=== PATIENT | female | born 1955 | race Caucasian/White ===

== ENCOUNTER → 2019-06-01 | Day surgery (SDC) | payer OTHER ==
[~2019-06-01] MED LIST: ACYCLOVIR400 MG PO; CALCIUM PO; CALCIUM WITH V1 EAC1 PO; COLESTIPOL HCL1 GM PO; FENTANYL CITRATE/PF 100MCG/2 ML INJ ONE; GLUCAGON FOR INJ 1 MG VIAL ONE; HYOSCYAMINE 0.125 MG TAB ONE; LIALDA1.2 GM PO; MIDAZOLAM HCL 2 MG/2 ML VIAL ONE; MULTIVITAMIN PO; OMEPRAZOLE40 MG PO; PENTASA500 MG PO; PRED FORTE1 ML LEFT EAR; PROPOFOL IV EMULSION 10 MG/ML 50 ML VIAL ONE
--- OUTSIDE RECORDS SUMMARY | 2019-06-01 08:09 | XMS REPORT | Encounter Summary ---
Author Organization Unknown Address [address] [place] [address] Phone [phone] Reason for Visit Medical Complaint Instructions 1. Acute urinary tract infection Macrobid 100 mg capsule urinary tract infection in women: care instructions urinalysis, dipstick culture, urine - 11/23/2017@1205pm 2. Dysuria painful urination (dysuria): care instructions phenazopyridine 200 mg tablet Discussion Note: None recorded. Plan of Care Patient Instructions Take charge of your health handout given and discussed. SE of medictions discussed and pt verbalized understanding. Reminders Provider Appointments None recorded. Lab Urinalysis, Dipstick 11/23/2017 [facility] Culture, Urine 11/23/2017 [facility] Referral None recorded. Procedures None recorded. Surgeries None recorded. Imaging None recorded. Medications Name Start Date Colestid qd colestipol 1 gram tablet Fluarix Quad 5028-7082 (PF) 60 mcg (15 mcg x 4)/0.5 mL IM syringe TO BE ADMINISTERED BY PHARMACIST FOR IMMUNIZATION Macrobid 100 mg capsule Take 1 capsule every 12 hours by oral route as directed for 7 days. multivitamin [place] 3 omeprazole 40 mg capsule,delayed release Pentasa 500 mg capsule,controlled release phenazopyridine 200 mg tablet Take 1 tablet 3 times a day by oral route as needed for 2 days. Medications Administered None recorded. Vitals Height Weight BMI Blood Pressure 5 ft 1 in 116 lbs 21.9 kg/m2 110/74 mm[Hg] Lab Results Date Name Specimen Result Interpretation Description Value Range Status Address Urinalysis, Dipstick Color : Yellow [facility]: [address] [place] [address] Clarity : Cloudy [facility]: [address] [place] [address] Leukocytes : Large [facility]: [address] [place] [address] Nitrites : Negative [facility]: [address] [place] [address] Urobilinogen : Normal [facility]: [address] [place] [address] Protein : 100 [facility]: [address] [place] [address] Ph : 6.5 [facility]: [address] [facility] Blood : Large [facility]: [facility] Specific [place] : 1.020 [facility]: [facility] Ketones : Negative [facility]: [address] [facility] Bilirubin : Negative [facility]: 9 [facility] Glucose Negative [facility]: 9 [facility] Allergies Code Code System Name Reaction Severity Status Onset 2670 RxNorm Codeine Rash Moderate Active Problems Name Status Onset Date Source Urinary Tract Infectious Disease Active Encounter Wheezing Active Encounter Cough Active Encounter Dysuria Active Encounter Procedures Date Name Performed by Cholecystectomy Information not available Hysterectomy Information not available Vaccine List Vaccine Type influenza, injectable, quadrivalent 05/07/2017 influenza, seasonal, injectable 06/06/2015 Tdap 03/06/2017 Social History Smoking Status Former Smoker Past Encounters 11/23/2017 Acute Urinary Tract Infection; Dysuria 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 History of Present Illness [id number] Reported By: Patient HPI: Location: urethra. Quality: pressure, burning. Severity: worsening, severe. Duration: started 1 wek. Onset/Timing: gradual. Context: not sexually active, no known exposure to STD, no prior history of STDs. Modifying factors OTC medication. Associated Symptoms: no fever/chills, no flank pain, no jaundice, no blood in the urine, no vaginal discharge, no blisters on genitals, no rash on genitals, no muscle aches, no headache, pain during urination, burning sensation during urination, urgency, urinary frequency, feeling of incomplete emptying of bladder Review of Systems:ROS as noted in the HPI Review of Systems Basic Reported By: Patient Physical Exam Adult Basic, Adult Female Complete Reported By: Patient Constitutional: General Appearance: healthy-appearing, well-nourished, well-developed. Level of Distress: NAD. Ambulation: ambulating normally Psychiatric: Mental Status: active and alert. Orientation: to time, to place, to person Lungs: Respiratory effort: no dyspnea, no tachypnea, no use of accessory muscles, no intercostal retractions. Auscultation: breath sounds normal Cardiovascular: Heart Auscultation: RRR, no murmurs Neurologic: Gait and Station: normal gait, normal station Abdomen: Bowel Sounds: normal. Inspection and Palpation: soft, non-distended, no guarding, no masses, no CVA tenderness, suprapubic tenderness. Liver: non- tender, no hepatomegaly. Spleen: non-tender, no splenomegaly
--- OUTSIDE RECORDS SUMMARY | 2019-06-01 08:09 | XMS REPORT | Encounter Summary ---
Author Organization Unknown Address [address] [place] [address] Phone [phone] Reason for Visit Left Medical Complaint Instructions 1. Viral conjunctivitis pinkeye: care instructions Patanol 0.1 % eye drops adenovirus Ag, Immunoassay 2. Influenza-like symptoms rapid flu (A+B) 3. Pain in throat sore throat: care instructions rapid strep group A, throat Lidocaine Viscous 2 % mucosal solution Discussion Note Pt is in NAD; Verbalizes understanding of all instructions with no questions at this time. Plan of Care Patient Instructions Stop trobamycin-dexamethasone eye drops. Proper hand hygiene after contact with eyes, do not share pillows/clothing. Do not not wear any contacts for the next 7 days. Use a different tissue to clean each eye. You will become non-contagious after about 7-10 days. Start Patanol eye drops as directed for redness/itching. Take medications as prescribed. Follow up with your PCP or installation and repair technician within 2-3 days if symptoms worsen as discussed. Report to ER in case of emergency, sharp eye pain or vision loss. Gargle and spit viscous lidocaine as needed for sore throat as directed. Alternate with Ibuprofen and acetaminophen every 4-6hrs as needed for pain/fever/headache. Proper hydration and rest. Do not share any utensils/cups, no kissing. Frequent handwashing recommended. Take medications as prescribed. Follow up with your PCP within 2-3 days if symptoms worsen as discussed. Reminders Provider Appointments None recorded. Lab Rapid Flu (A+B) 09/07/2018 [facility] Rapid Strep Group a, Throat 09/07/2018 [facility] Adenovirus Ag, Immunoassay 09/07/2018 [facility] Referral None recorded. Procedures None recorded. Surgeries None recorded. Imaging None recorded. Medications Name Start Date Afluria Quad 2710-8647 (PF) 60 mcg (15 mcg x 4)/0.5 mL IM syringe ADM 0.5ML IM UTD colestipol 1 gram tablet Lidocaine Viscous 2 % mucosal solution Take 15 mL every 3 hours by oral route as needed. mesalamine 1.2 gram tablet,delayed release TK 2 TS PO QD omeprazole 40 mg capsule,delayed release Patanol 0.1 % eye drops INSTILL 1 DROP INTO AFFECTED EYE(S) BY OPHTHALMIC ROUTE 2 TIMES PER DAY AT AN INTERVAL OF 6 TO 8 HOURS APART PRN REDNESS/WATERY DRAINAGE/ITCHING Medications Administered None recorded. Vitals Height Weight BMI Blood Pressure 5 ft 1 in 130 lbs 24.6 kg/m2 110/70 mm[Hg] Lab Results Date Name Specimen Result Interpretation Description Value Range Status Address Adenovirus Ag, Immunoassay Result positive [facility]: [address] [place] [address] Swab Location Left Conjunctiva [facility]: [address] [place] [address] Rapid Strep Group a, Throat Result negative [facility]: [address] [place] [address] Swab Location Left and Right tonsillar pillars [facility]: [address] [place] [address] Rapid Flu (A+B) Influenza a negative [facility]: [address] [place] [address] Influenza B negative [facility]: [address] [place] [address] Allergies Code Code System Name Reaction Severity Status Onset 2670 RxNorm Codeine Rash Moderate Active Problems Name Status Onset Date Source Viral Conjunctivitis Active 09/07/2018 Pain in Throat Active 09/07/2018 Crohn's Disease Active 09/07/2018 Influenza-like Symptoms Active 09/07/2018 Procedures Date Name Performed by Cholecystectomy Information not available Hysterectomy Information not available Vaccine List Vaccine Type influenza, injectable, quadrivalent 05/07/2017 influenza, seasonal, injectable 06/06/2015 influenza, unspecified formulation 05/20/2018 Tdap 03/06/2017 Social History Smoking Status Former Smoker Past Encounters 09/07/2018 Viral Conjunctivitis; Influenza-like Symptoms; Pain in Throat Jessa Alvarado, CLINICAL COURIER-C: [address] [place] [address], Ph. History of Present Illness [id number] Reported By: Patient HPI: Quality: symptoms worse during the day. Duration: constant; left eye injected, watery drainage, matting and crusting x 5 days and sore throat, body aches, and fever yesterday. Severity: highest temperature 100.8. Onset/Timing: first recorded 09-06-18. Context: no ill contacts, no tick/insect bites, no recent travel, no new medications. Associated Symptoms: no fever/chills, no headache, no muscle aches, no rash, no lethargy, cold symptoms; left eye injected, watery drainage, matting and crusting, sore throat, body aches, and fever. Modifying Factors nothing gives relief Eye Complaint Reported By: Patient HPI: Location: left. Severity: no pain. Duration constant. Onset/Timing: first episode, gradual onset, 5days. Context no previous history of Iritis, no previous history of recurrent corneal erosion, no one else with similar symptoms, wears contact lenses. Modifying factors nothing gives relief. Associated Symptoms: vision intact, no sensitivity to light, no foreign body sensation in eyes, no pain in the eyes, no pain with eye movement, no headache, no fever/chills, no muscle aches, matting/drainage, watery discharge from the eyes; left eye injected, sore throat, body aches, and fever Note:
Review of Systems:ROS as noted in the HPI Review of Systems Basic Reported By: Patient Physical Exam Adult Basic, Adult Female Complete Reported By: Patient Constitutional: General Appearance: well-nourished, well-developed. Level of Distress: NAD Psychiatric: Mental Status: active and alert. Orientation: to time, to place, to person Eyes: Lids and Conjunctivae: injected, discharge. Pupils: PERRLA. Corneas: grossly intact. EOM: EOMI. Vision: distance acuity: left, uncorrected: 20/40, distance acuity: right, with correction: 20/70 Htq-Mwdc-Sjzom-Throat: Ears: no lesions on external ear, no outer ear tenderness, EACs clear, TMs clear. Hearing: no hearing loss. Nose: no lesions on external nose, nares patent, no septal deviation, nasal passages clear, no sinus tenderness, no nasal discharge. Lips, Teeth, and Gums: no mouth or lip ulcers, no bleeding gums, normal dentition. Oropharynx: moist mucous membranes, no erythema, no exudates, tonsils not enlarged Neck: Lymph Nodes: no cervical LAD. Thyroid: no enlargement Lungs: Respiratory effort: no tachypnea Cardiovascular: Heart Auscultation: no murmurs Skin: Inspection and palpation: no rash
--- OUTSIDE RECORDS SUMMARY | 2019-06-01 08:09 | XMS REPORT ---
Author Author [facility] Address Unknown Phone Unavailable Care Team Providers Care Clinic Administrator Name Role Phone Unavailable Unavailable Problems This patient has no known problems. Allergies, Adverse Reactions, Alerts This patient has no known allergies or adverse reactions. Medications This patient has no known medications. Results Test Description Test Time Test Comments Text Results Atomic Results Result Comments SCR MAMM BILATERAL VESNA CAD DIGITAL W/AUGMENTATION 2019-02-07 09:02:07 - SCR MAMM BILATERAL VESNA CAD DIGITAL W/AUGMENTATIONBILATERAL DIGITAL SCREENING MAMMOGRAM 3D/2D WITH CAD WITH AUGMENTATION: 02/06/2019CLINICAL: Asymptomatic. Digital breast tomosynthesis was performed in addition to routine CC and MLO views. Current mammographic images were evaluated by either a T3 MOTION M-Vu or a Panève ImageChecker CAD (computer aided detection system). Comparison is made to exams dated 01/27/2018 mammogram, 01/05/2017 mammogram, and 07/09/2015 mammogram - [facility]-. The tissue of both breasts is predominantly fatty. There are benign calcifications in both breasts. Bilateral retropectoral silicone breast implants are seen.No suspicious mass, architectural distortion, malignant type calcification, or lymph node abnormality detected. Breast architecture is stable when compared to the prior exams.IMPRESSION: BENIGNThere is no mammographic evidence of malignancy. Resume annual screening mammography in one year. Dimitri Corey M.D. ss/:02/07/2019 09:02:07 [place] Ripper: Starla Cook , [facility]-FWletter sent: BIRADS 1-2 Normal Mammogram BI-RADS: 2 Benign
--- OUTSIDE RECORDS SUMMARY | 2019-06-01 08:09 | XMS REPORT | Encounter Summary ---
Author Organization Unknown Address [address] [place] [address] Phone [phone] Reason for Visit Medical Complaint; urinary symptoms, x 4 days Instructions 1. Urinary tract infectious disease urinalysis, dipstick culture, urine Bactrim DS 800 mg-160 mg tablet phenazopyridine 200 mg tablet Discussion Note: None recorded. Patient educational handouts: No information available. Plan of Care Patient Instructions Drink 8-10 glasses of water daily to stay well hydrated. Do not ignore the urge to urination, retaining urine in the bladder for extended periods can lead to infection. Wear cotton or breatheable underwear and avoid staying in damp clothing for extended periods of time. Take the entire course of antibiotics even if you are feeling better. If no improvement in 3-4 days or symptoms worsen (fever, abdominal pain, nausea/vomiting, flank pain) please follow up with your PCP. Reminders Provider Appointments None recorded. Lab Urinalysis, Dipstick 04/26/2016 [facility] Culture, Urine 04/26/2016 [facility] Referral None recorded. Procedures None recorded. Surgeries None recorded. Imaging None recorded. Medications Name Start Date Bactrim DS 800 mg-160 mg tablet Take 1 tablet twice a day by oral route for 7 days. Calcium 600 with Vitamin D3 Colestid qd colestipol 1 gram tablet multivitamin [place] 3 omeprazole 40 mg capsule,delayed release Pentasa 500 mg capsule,controlled release phenazopyridine 200 mg tablet Take 1 tablet 3 times a day by oral route as needed. Medications Administered None recorded. Vitals Height Weight BMI Blood Pressure 5 ft 1 in 128 lbs 24.2 133/77 Lab Results Date Name Result Description Value Range Status 04/26/2016 Culture, Urine Antimicrobial Susceptibility [facility] Final ABNORMAL Result 1 citrobacter koseri Final ABNORMAL Urine Culture, Routine final report Final Urinalysis, Dipstick Color : Yellow Clarity : Cloudy Leukocytes : Moderate Nitrites : Negative Urobilinogen : Normal Protein : Trace Ph : 5.0 Blood : Negative Specific [place] : 1.015 Ketones : Negative Bilirubin : Negative Glucose Negative Allergies Name Reaction Severity Onset Codeine Rash Moderate Problems Name Status Onset Date Source Urinary Tract Infectious Disease Active Encounter Wheezing Active Encounter Cough Active Encounter Dysuria Active Encounter Motion Sickness Active Encounter Procedures Date Name Performed by Cholecystectomy Information not available Hysterectomy Information not available Vaccine List Vaccine Type influenza, seasonal, injectable 06/05/2015 Social History Smoking Status Former Smoker Past Encounters 04/26/2016 Urinary Tract Infectious Disease RAYMUNDO Varela: [address] [place] [address], Ph. History of Present Illness [id number] Reported By: Patient HPI: Location: ; burning, urgency, frequency x 4 days. Quality: burning. Severity: worsening. Onset/Timing: worse. Context: not sexually active, no known exposure to STD, no prior history of STDs, denies possible , history of urine cultures/antibiotic treatment. Modifying factors OTC medication. Associated Symptoms: no fever/chills, no flank pain, no jaundice, no blood in the urine, no pain during urination, no vaginal discharge, no blisters on genitals, no rash on genitals, burning sensation during urination, urgency, urinary frequency, feeling of incomplete emptying of bladder Review of Systems Basic Reported By: Patient Constitutional: Constitutional: no fever Eyes: Eyes: no eye complaints Zbhn-Vsol-Emebe-Throat: Ears: no ear complaints. Nose: no nose/sinus problems. Mouth/Throat: no sore throat, no bleeding gums, no mouth complaints, no teeth problems Cardiovascular: Cardiovascular: no chest pain, no shortness of breath, no known heart murmur Respiratory: Respiratory: no cough, no wheezing, no shortness of breath Gastrointestinal: Gastrointestinal: no abdominal pain, no vomiting / diarrhea Genitourinary: Genitourinary: no discharge, dysuria, urinary urgency Musculoskeletal: Musculoskeletal: no muscle aches, no muscle weakness, no arthralgias/joint pain, no back pain Skin: Skin: no abnormal / changing mole, no jaundice, no rashes Neurologic: Neurologic: no loss of consciousness, no weakness, no numbness, no seizures, no dizziness, no headaches Physical Exam Adult Basic, Adult Female Complete Constitutional: General Appearance: healthy-appearing, well-nourished, well-developed. Level of Distress: NAD. Ambulation: ambulating normally Psychiatric: Mental Status: active and alert. Orientation: to time, to place, to person Lungs: Respiratory effort: no dyspnea, no tachypnea, no use of accessory muscles, no intercostal retractions. Auscultation: breath sounds normal Cardiovascular: Heart Auscultation: RRR, no murmurs Skin: Inspection and palpation: no rash, no lesions, no ulcer, no abnormal nevi, no induration, no nodules, good turgor, no jaundice Abdomen: Bowel Sounds: normal. Inspection and Palpation: soft, non-distended, no tenderness, no guarding, no rebound tenderness, no masses, no CVA tenderness
--- OUTSIDE RECORDS SUMMARY | 2019-06-01 08:09 | XMS REPORT | Encounter Summary ---
Author Organization Unknown Address [address] [place] [address] Phone [phone] Reason for Visit Medical Complaint Instructions 1. Cough Zithromax Z-Rolo 250 mg tablet Bromfed DM 2 mg-30 mg-10 mg/5 mL syrup cough: care instructions 2. Wheezing albuterol sulfate HFA 90 mcg/actuation aerosol inhaler wheezing or bronchoconstriction: care instructions Discussion Note: None recorded. Plan of Care Patient Instructions Take albuterol every 4-6 hoursfor at least the next 5 days. Please complete antibiotic course even after symptoms resolve. Please f/u with PCP in 1 week or seek care immediatelyif you are short of breath, have trouble breathing, or can't catch breath. Patient verbalizes understanding and agrees to the plan. Reminders Provider Appointments None recorded. Lab None recorded. Referral None recorded. Procedures None recorded. Surgeries None recorded. Imaging None recorded. Medications Name Start Date Afluria 4842-1754(PF) 45 mcg (15 mcg x 3)/0.5 mL intramuscular syringe TO BE ADMINISTERED BY PHARMACIST FOR IMMUNIZATION albuterol sulfate HFA 90 mcg/actuation aerosol inhaler Inhale 2 puff(s) every 4-6 hours by inhalation route as needed for wheezing. Bromfed DM 2 mg-30 mg-10 mg/5 mL syrup Take 10 mL every 6 hours by oral route as needed for cough. Calcium 600 with Vitamin D3 Colestid qd colestipol 1 gram tablet multivitamin [place] 3 omeprazole 40 mg capsule,delayed release Pentasa 500 mg capsule,controlled release phenazopyridine 200 mg tablet sulfamethoxazole 800 mg-trimethoprim 160 mg tablet Zithromax Z-Rolo 250 mg tablet TAKE 2 TABLETS (500 MG) BY ORAL ROUTE ONCE DAILY FOR 1 DAY THEN 1 TABLET (250 MG) BY ORAL ROUTE ONCE DAILY FOR 4 DAYS Medications Administered None recorded. Vitals Height Weight BMI Blood Pressure 5 ft 2 in 129 lbs 23.6 118/78 Lab Results None recorded. Allergies Name Reaction Severity Onset Codeine Rash Moderate Problems Name Status Onset Date Source Urinary Tract Infectious Disease Active Encounter Wheezing Active Encounter Cough Active Encounter Dysuria Active Encounter Motion Sickness Active Encounter Procedures Date Name Performed by Cholecystectomy Information not available Hysterectomy Information not available Vaccine List Vaccine Type influenza, seasonal, injectable 06/05/2015 Social History Smoking Status Former Smoker Past Encounters 02/29/2016 Cough; Wheezing CULLEN CurranP: [address] [place] [address], Ph. History of Present Illness Cough Reported By: Patient HPI: Quality: productive cough, colored phlegm, dry cough, wheezy cough. Duration: 8 days. Severity: moderate. Onset/Timing: gradual. Context: no sick contacts, no foreign travel, non-smoker. Modifying factors: OTC medication. Associated Symptoms: no shortness of breath, no wheezing, no sweats, no significant weight gain, no significant weight loss, no morning cough, no vomiting, no diarrhea, no rash, no nausea, yellow-green, thick sputum, sore throat Review of Systems Basic Reported By: Patient Constitutional: Constitutional: no fever Eyes: Eyes: no eye complaints Qdvb-Jchv-Itgbc-Throat: Ears: no ear complaints. Nose: no nose/sinus problems. Mouth/Throat: no bleeding gums, no mouth complaints, no teeth problems, sore throat Cardiovascular: Cardiovascular: no chest pain, no shortness of breath, no known heart murmur Respiratory: Respiratory: no wheezing, no shortness of breath, cough Gastrointestinal: Gastrointestinal: no abdominal pain, no vomiting / diarrhea Genitourinary: Genitourinary: no urinary complaints, no discharge Musculoskeletal: Musculoskeletal: no muscle aches, no muscle weakness, no arthralgias/joint pain, no back pain Skin: Skin: no abnormal / changing mole, no jaundice, no rashes Neurologic: Neurologic: no loss of consciousness, no weakness, no numbness, no seizures, no dizziness, headache Physical Exam Adult Basic, Adult Female Complete Constitutional: General Appearance: healthy-appearing, well-nourished, well-developed. Level of Distress: NAD. Ambulation: ambulating normally Psychiatric: Mental Status: active and alert. Orientation: to time, to place, to person Eyes: Lids and Conjunctivae: non-injected, no discharge, no pallor. Pupils: PERRLA. EOM: EOMI. Lens: clear. Sclerae: non-icteric Jjo-Cdas-Imzar-Throat: Ears: no lesions on external ear, no outer ear tenderness, EACs clear, TMs clear. Hearing: no hearing loss. Nose: no lesions on external nose, nares patent, no septal deviation, nasal passages clear, no sinus tenderness, no nasal discharge. Lips, Teeth, and Gums: no mouth or lip ulcers, no bleeding gums, normal dentition. Oropharynx: moist mucous membranes, no exudates, erythema, tonsils absent Neck: Neck: supple. Lymph Nodes: no cervical LAD, no supraclavicular LAD Lungs: Respiratory effort: no dyspnea, no tachypnea. Auscultation: expiratory wheezing Cardiovascular: Heart Auscultation: RRR, no murmurs Neurologic: Gait and Station: normal gait
--- OUTSIDE RECORDS SUMMARY | 2019-06-01 08:09 | XMS REPORT | Continuity of Care Document ---
Author Author prollie Address Unknown Phone Unavailable Care Team Providers Care Tube Fitter Name Role Phone [facility] Information [facility] Unavailable Unavailable Problems Problem Status Onset Date Classification Date Reported Comments Source Viral conjunctivitis 09/07/2018 Problem 09/07/2018 [facility] Pain in throat 09/07/2018 Problem 09/07/2018 [facility] Crohn's disease 09/07/2018 Problem 09/07/2018 [facility] Influenza-like symptoms 09/07/2018 Problem 09/07/2018 [facility] Acute urinary tract infection 11/23/2017 Diagnosis 11/23/2017 [facility] Urinary tract infectious disease Problem 11/23/2017 [facility] Wheezing Problem 11/23/2017 [facility] Cough Problem 11/23/2017 [facility] Dysuria Problem 11/23/2017 [facility] Motion sickness Problem 04/26/2016 [facility] Medications Medication Details Route Status Patient Instructions Ordering Provider Order Date Source 0.5 ML Influenza A virus vaccine, U-Ewxjlhwhay-1-2009 (H1N1)-like virus 0.03 MG/ML / Influenza A virus vaccine, U-Symjkdgj-534-2011 (H3N2)-like virus 0.03 MG/ML / Influenza B virus vaccine, P-Flovagxrrlzgz-4-like virus 0.03 MG/ML Prefilled Syringe Afluria 0294-9917(PF) 45 mcg (15 mcg x 3)/0.5 mL intramuscular syringe TO BE ADMINISTERED BY PHARMACIST FOR IMMUNIZATION Active [facility] 200 ACTUAT Albuterol 0.09 MG/ACTUAT Metered Dose Inhaler albuterol sulfate HFA 90 mcg/actuation aerosol inhaler Inhale 2 puff(s) every 4- 6 hours by inhalation route as needed for wheezing. Active [facility] Brompheniramine Maleate 0.4 MG/ML / Dextromethorphan Hydrobromide 2 MG/ML / Pseudoephedrine Hydrochloride 6 MG/ML Oral Solution [Bromfed DM] Bromfed DM 2 mg-30 mg-10 mg/5 mL syrup Take 10 mL every 6 hours by oral route as needed for cough. Active [facility] Calcium 600 with Vitamin D3 Calcium 600 with Vitamin D3 Active [facility] Colestid Colestid qd Active [facility] Colestipol Hydrochloride 1000 MG Oral Tablet colestipol 1 gram tablet Active [facility] multivitamin multivitamin Active [facility] Ely 3 Ely 3 Active [facility] Omeprazole 40 MG Delayed Release Oral Capsule omeprazole 40 mg capsule,delayed release Active [facility] mesalamine 500 MG Extended Release Oral Capsule [Pentasa] Pentasa 500 mg capsule,controlled release Active [facility] Phenazopyridine hydrochloride 200 MG Oral Tablet phenazopyridine 200 mg tablet Take 1 tablet 3 times a day by oral route as needed for 2 days. Active [facility] Sulfamethoxazole 800 MG / Trimethoprim 160 MG Oral Tablet sulfamethoxazole 800 mg-trimethoprim 160 mg tablet Active [facility] Azithromycin 250 MG Oral Tablet Zithromax Z-Rolo 250 mg tablet TAKE 2 TABLETS (500 MG) BY ORAL ROUTE ONCE DAILY FOR 1 DAY THEN 1 TABLET (250 MG) BY ORAL ROUTE ONCE DAILY FOR 4 DAYS Active [facility] 0.5 ML influenza A virus A/[place] (H3N2) antigen 0.03 MG/ML / influenza A virus A/ (H1N1) antigen 0.03 MG/ML / influenza B virus B/[place] antigen 0.03 MG/ML / influenza B virus B/[facility] antigen 0.03 MG/ML Prefilled Syringe [Fluarix Quadrivalent 9799-9744] Fluarix Quad 8727-1973 (PF) 60 mcg (15 mcg x 4)/0.5 mL IM syringe TO BE ADMINISTERED BY PHARMACIST FOR IMMUNIZATION Active [facility] NITROFURANTOIN, MACROCRYSTALS 25 MG / Nitrofurantoin, Monohydrate 75 MG Oral Capsule [Macrobid] Macrobid 100 mg capsule Take 1 capsule every 12 hours by oral route as directed for 7 days. Active [facility] 0.5 ML influenza A virus A/ (H1N1) antigen 0.03 MG/ML / influenza A virus A/[id number] (H3N2) antigen 0.03 MG/ML / influenza B virus B/[place] antigen 0.03 MG/ML / influenza B virus B/[facility]/3073/2012 antigen 0.03 MG/ML Prefilled Syringe [Afluria Quadrivalent 2061-1077] Afluria Quad 8848-7638 (PF) 60 mcg (15 mcg x 4)/0.5 mL IM syringe ADM 0.5ML IM UTD Active [facility] Lidocaine Hydrochloride 20 MG/ML Mucous Membrane Topical Solution Lidocaine Viscous 2 % mucosal solution Take 15 mL every 3 hours by oral route as needed. Active [facility] mesalamine 1200 MG Delayed Release Oral Tablet mesalamine 1.2 gram tablet,delayed release TK 2 TS PO QD Active [facility] olopatadine 1 MG/ML Ophthalmic Solution [Patanol] Patanol 0.1 % eye drops INSTILL 1 DROP INTO AFFECTED EYE(S) BY OPHTHALMIC ROUTE 2 TIMES PER DAY AT AN INTERVAL OF 6 TO 8 HOURS APART PRN REDNESS/WATERY DRAINAGE/ITCHING Active [facility] Sulfamethoxazole 800 MG / Trimethoprim 160 MG Oral Tablet [Bactrim] Bactrim DS 800 mg-160 mg tablet Take 1 tablet twice a day by oral route for 7 days. Active [facility] Allergies, Adverse Reactions, Alerts Substance Category Reaction Severity Reaction type Status Date Reported Comments Source Codeine Rash Moderate Allergy to substance 11/22/2013 [facility] Immunizations Immunization Date Given Site Status Last Updated Comments Source influenza, unspecified formulation 05/20/2018 completed [facility] influenza, injectable, quadrivalent 05/07/2017 completed [facility] Tdap 03/06/2017 completed [facility] influenza, seasonal, injectable 06/06/2015 completed [facility] Results Order Name Results Value Reference Range Date Interpretation Comments Source Adenovirus Ag [Presence] in Unspecified specimen by Immunoassay RESULT positive 09/07/2018 [facility] Adenovirus Ag [Presence] in Unspecified specimen by Immunoassay SWAB LOCATION Left Conjunctiva 09/07/2018 [facility] RESULT negative 09/07/2018 [facility] SWAB LOCATION Left and Right tonsillar pillars 09/07/2018 [facility] Influenza A negative 09/07/2018 [facility] Influenza B negative 09/07/2018 [facility] Urinalysis macro (dipstick) panel - Urine COLOR : Yellow 11/23/2017 [facility] Urinalysis macro (dipstick) panel - Urine CLARITY : Cloudy 11/23/2017 [facility] Urinalysis macro (dipstick) panel - Urine LEUKOCYTES : Large 11/23/2017 [facility] Urinalysis macro (dipstick) panel - Urine NITRITES : Negative 11/23/2017 [facility] Urinalysis macro (dipstick) panel - Urine UROBILINOGEN : Normal 11/23/2017 [facility] Urinalysis macro (dipstick) panel - Urine PROTEIN : 100 11/23/2017 [facility] Urinalysis macro (dipstick) panel - Urine pH : 6.5 11/23/2017 [facility] Urinalysis macro (dipstick) panel - Urine BLOOD : Large 11/23/2017 [facility] Urinalysis macro (dipstick) panel - Urine SPECIFIC GRAVITY : 1.020 11/23/2017 [facility] Urinalysis macro (dipstick) panel - Urine KETONES : Negative 11/23/2017 [facility] Urinalysis macro (dipstick) panel - Urine BILIRUBIN : Negative 11/23/2017 [facility] Urinalysis macro (dipstick) panel - Urine GLUCOSE Negative 11/23/2017 [facility] Bacteria identified in Urine by Culture Other Antibiotic [Susceptibility] Antimicrobial Susceptibility 04/29/2016 [facility] Bacteria identified in Urine by Culture Bacteria identified in Urine by Culture Result 1 04/29/2016 abnormal [facility] Urinalysis macro (dipstick) panel - Urine COLOR : Yellow 04/26/2016 [facility] Urinalysis macro (dipstick) panel - Urine CLARITY : Cloudy 04/26/2016 [facility] Urinalysis macro (dipstick) panel - Urine LEUKOCYTES : Moderate 04/26/2016 [facility] Urinalysis macro (dipstick) panel - Urine NITRITES : Negative 04/26/2016 [facility] Urinalysis macro (dipstick) panel - Urine UROBILINOGEN : Normal 04/26/2016 [facility] Urinalysis macro (dipstick) panel - Urine PROTEIN : Trace 04/26/2016 [facility] Urinalysis macro (dipstick) panel - Urine pH : 5.0 04/26/2016 [facility] Urinalysis macro (dipstick) panel - Urine BLOOD : Negative 04/26/2016 [facility] Urinalysis macro (dipstick) panel - Urine SPECIFIC GRAVITY : 1.015 04/26/2016 [facility] Urinalysis macro (dipstick) panel - Urine KETONES : Negative 04/26/2016 [facility] Urinalysis macro (dipstick) panel - Urine BILIRUBIN : Negative 04/26/2016 [facility] Urinalysis macro (dipstick) panel - Urine GLUCOSE Negative 04/26/2016 [facility] Pathology Reports No Data Provided for This Section Diagnostic Reports No Data Provided for This Section Consultation Notes No Data Provided for This Section Discharge Summaries No Data Provided for This Section History and Physicals No Data Provided for This Section Vital Signs Vital Sign Value Date Comments Source Diastolic (mm Hg) 70 09/07/2018 [facility] Height 61 09/07/2018 [facility] Systolic (mm Hg) 110 09/07/2018 [facility] Weight 130 09/07/2018 [facility] Diastolic (mm Hg) 74 11/23/2017 [facility] Height 61 11/23/2017 [facility] Systolic (mm Hg) 110 11/23/2017 [facility] Weight 116 11/23/2017 [facility] Diastolic (mm Hg) 77 04/26/2016 [facility] Height 61 04/26/2016 [facility] Systolic (mm Hg) 133 04/26/2016 [facility] Weight 128 04/26/2016 [facility] Diastolic (mm Hg) 78 02/29/2016 [facility] Height 62 02/29/2016 [facility] Systolic (mm Hg) 118 02/29/2016 [facility] Weight 129 02/29/2016 [facility] Encounters Location Location Details Encounter Type Encounter Number Reason For Visit Attending Provider ADM Date DC Date Status Source [place] - [facility] - [id number] Dianelys Mcallister, [employer]: [address] [place] [address], Ph. [id number] Dianelys Mcallister 02/29/2016 [facility] [place] [facility] - [id number] CULLEN VarelaP: [address] [place] [address], Ph. [id number] Lorena Davalos 04/26/2016 [facility] [place] [facility] - [id number] Tiffanie [place], MAPPING SPECIALIST: [address] [place] [address], Ph. [id number] Tiffanie Toledo 11/23/2017 [facility] [place] [facility] - [id number] Jessa Alvarado, [employer]-C: [address] [place] [address], Ph. [id number] Jessa Alvarado 09/07/2018 [facility] Procedures Procedure Code Date Perfomer Comments Source Cholecystectomy [facility] Hysterectomy [facility] Assessment and Plan No Data Provided for This Section Plan of Care No Data Provided for This Section Social History Social History Date Source Smoking Status Former Smoker 11/22/2013 [facility] Family History No Data Provided for This Section Advance Directives No Data Provided for This Section Functional Status No Data Provided for This Section
[2019-06-01 12:45] VITALS: BP 113/68
--- NOTE | 2019-06-01 19:01 | Operative Report ---
DATE OF PROCEDURE: 06/01/2019 SURGEON: Julien Ames MD PROCEDURES: EGD with biopsies and colonoscopy with polypectomy and biopsies. INDICATIONS FOR EGD: Dyspepsia. INDICATIONS FOR COLONOSCOPY: Surveillance colonoscopy, personal history of colon polyps, history of Crohn disease, diarrhea. MEDICATIONS: The patient was done under MAC, please see anesthesiologist's note. PROCEDURE IN DETAIL: With the patient in left lateral decubitus position, a flexible fiberoptic Olympus gastroscope was introduced into the esophagus under direct visualization without any difficulty. Two minute nodules were biopsied in the cervical esophagus. The distal esophagus revealed some patchy and mild inflammatory changes. The scope was then advanced with ease into the stomach, mucosa overlying the antrum and the body revealed some patchy erythema and [id number]-[id number] edema, and biopsies were obtained and sent to stain for H. pylori. Two minute polyps were noted in the fundus that were partially excised with the cold biopsy forceps. Pylorus appeared to be of normal contour and shape, it was intubated with ease and the scope was advanced all the way to the second portion of the duodenum. Biopsies were obtained from the second portion as well as the duodenal bulb to rule out sprue. The scope was then withdrawn back into the stomach and retroflexed, mucosa overlying the fundus and the cardia appeared to be within normal limits. The scope was then straightened out, it was subsequently withdrawn, and the patient tolerated the procedure well. IMPRESSION: 1. Minute nodule, cervical esophagus, biopsied. 2. Distal esophagitis, mild. 3. Gastric polyps, fundus, partially excised with the cold biopsy forceps. 4. Gastritis, biopsied, biopsies sent to stain for Helicobacter pylori. 5. Rule out sprue. PLAN: Follow up histology. Continue omeprazole 40 mg 1 p.o. before meals b.i.d. The patient was then turned around and after adequate lubrication of the anal canal, a flexible fiberoptic Olympus colonoscope was inserted into the rectum with ease and advanced all the way to the cecum. Mucosa overlying the cecum appeared to be within normal limits. The ileocecal valve was intubated and the scope was advanced into the terminal ileum. Biopsies were obtained. The scope was then withdrawn back into the colon. It was then withdrawn slowly. Mucosa overlying the ascending and the transverse grossly appeared to be within normal limits. There was some minimal diverticular disease. There was some patchy and mild inflammatory changes noted in the left colon as well as the rectum and random biopsies were obtained. Minimal also diverticular disease was noted in the left colon. The scope was then retroflexed into the distal rectum and small internal hemorrhoids were noted, none of which was actively bleeding. The scope was then straightened out, it was subsequently withdrawn, and the patient tolerated the procedure well. IMPRESSION: 1. Mild patchy left-sided colitis. 2. Diverticulosis, minimal. 3. Rectal polyps x2, hot biopsied. 4. Internal hemorrhoids, none actively bleeding. PLAN: Follow up histology. Continue Lialda at current dose. Check IBD panel, CRP, and sedimentation rate. The patient will need small bowel series if not done. Julien Ames MD [facility] [place] /[id number] cc: Nacho Ames MD
== END | disposition home or self-care (01) ==
LOC: OR 08:05
PROVIDERS: ATTEND Internal Medicine Gastroenterology
DX: K51.50 Left sided colitis without complications (principal); K31.7 Polyp of stomach and duodenum; K62.1 Rectal polyp; K29.50 Unspecified chronic gastritis without bleeding; K29.60 Other gastritis without bleeding; K22.70 Barrett's esophagus without dysplasia; K20.8 Other esophagitis; K22.8 Other specified diseases of esophagus; K57.30 Diverticulosis of large intestine without perforation or abscess without bleeding; K64.8 Other hemorrhoids; Z01.810 Encounter for preprocedural cardiovascular examination; Z88.6 Allergy status to analgesic agent; Z87.891 Personal history of nicotine dependence
CPT/HCPCS: 36415; 43239; 45380; 45384; 85651; 86140; 86256; 86671; 93005; J1610; J2250; J2704; J3010; 45378

== ENCOUNTER 2020-01-06 00:57 | Emergency (ER) | payer OTHER ==
[~2020-01-06] VITALS: Ht 157.5 cm; Wt 63.5 kg
[~2020-01-06 00:57] MED LIST changes: -FENTANYL CITRATE/PF 100MCG/2 ML INJ ONE; -GLUCAGON FOR INJ 1 MG VIAL ONE; -HYOSCYAMINE 0.125 MG TAB ONE; -MIDAZOLAM HCL 2 MG/2 ML VIAL ONE; -PROPOFOL IV EMULSION 10 MG/ML 50 ML VIAL ONE
[2020-01-06] MEDS ORDERED: ONDANSETRON HCL INJ 2MG/ML 2ML 2 MG/ML VIAL IV STA (01:00)
[2020-01-06] MEDS ORDERED: KETOROLAC TROMETHAMINE 30 MG/ML VIAL IV STA ×2 (01:00→02:08)
[2020-01-06] MEDS ORDERED: SODIUM CHLORIDE 0.9% 1000ML 1,000 ML IV STA (01:00)
[2020-01-06 01:10] LABS: BASOPHILS # (AUTO) 0.1 (0.0-0.1); BASOPHILS % 0.6 % (0.0-1.0); EOSINOPHILS # (AUTO) 1.2 (0.0-0.4); EOSINOPHILS % 9.5 % (0.0-6.0); HEMATOCRIT 38.6 % (34.2-44.1); LYMPHOCYTES # (AUTO) 6.2 (1.0-3.2); LYMPHOCYTES % 48.1 % (18.0-39.1); MEAN CORPUSCULAR HEMOGLOBIN 32.2 pg (28-32); MEAN CORPUSCULAR HGB CONC 33.7 g/dL (31-35); MEAN CORPUSCULAR VOLUME 95.5 fL (81-99); MONOCYTES # (AUTO) 1.2 (0.2-0.8); MONOCYTES % 9.2 % (4.4-11.3); NEUTROPHILS # (AUTO) 4.2 (2.1-6.9); NEUTROPHILS % 32.4 % (38.7-80.0); PLATELET COUNT 320 x10e3/uL (140-360); RED BLOOD COUNT 4.04 x10e6/uL (3.6-5.1); RED CELL DISTRIBUTION WIDTH 12.9 % (11.7-14.4)
[2020-01-06 01:31] LABS: ALBUMIN 4.2 g/dL (3.5-5.0); ALBUMIN/GLOBULIN RATIO 1.3 (0.8-2.0); CALCIUM 9.7 mg/dL (8.4-10.2); CREATININE, SERUM 1.05 mg/dL (0.57-1.11)
--- NOTE | 2020-01-06 01:51 | Diagnostic Imaging Report ---
EXAM: CT Abdomen and Pelvis WITHOUT contrast INDICATION: ^R flank pain ^[id number] ^0110 COMPARISON: None. TECHNIQUE: Abdomen and pelvis were scanned utilizing a multidetector helical scanner from the lung base to the pubic symphysis without administration of IV contrast. Absence of intravenous contrast decreases sensitivity for detection of focal lesions and vascular pathology. Coronal and sagittal reformations were obtained. Routine protocol was performed. IV CONTRAST: None ORAL CONTRAST: None COMPLICATIONS: None RADIATION DOSE: Total DLP: 224 mGy*cm Estimated effective dose: (DLP x 0.015 x size factor) mSv CTDIvol has been reviewed. It is below the limits set by the Radiation Protocol Committee (RPC). Dose modulation, iterative reconstruction, and/or weight based adjustment of the mA/kV was utilized to reduce the radiation dose to as low as reasonably achievable. FINDINGS: LINES and TUBES: None. LOWER THORAX: Unremarkable HEPATOBILIARY: No focal hepatic lesions. No biliary ductal dilation. GALLBLADDER: Surgically absent. SPLEEN: No splenomegaly. PANCREAS: No focal masses or ductal dilatation. ADRENALS: No adrenal nodules KIDNEYS/URETERS: Mild right hydroureteronephrosis. Minimal right perinephric inflammation. The left kidney has a normal noncontrast appearance. 3 mm stone within the urinary bladder just distal to the right UVJ (image 139). GI TRACT: No abnormal distention, wall thickening, or evidence of bowel obstruction. PELVIC ORGANS/BLADDER: The urinary bladder is mostly decompressed. The uterus is surgically absent. LYMPH NODES: No lymphadenopathy. VESSELS: Unremarkable. PERITONEUM / RETROPERITONEUM: No free air or fluid. BONES: Unremarkable. SOFT TISSUES: Unremarkable. IMPRESSION: 1. Mild right hydroureteronephrosis due to a 3 mm stone within the urinary bladder just distal to the right UVJ. 2. Otherwise, no acute abdominal or pelvic abnormality. Signed by: Hermes Stewart MD on 01/06/2020 1:47 AM
[2020-01-06 02:21] LABS: CLARITY,URINE CLEAR (CLEAR); COLOR,URINE YELLOW (YELLOW); LEUKOCYTE ESTERASE ,URINE TRACE (NEGATIVE); NITRITE,URINE NEGATIVE (NEGATIVE); PROTEIN,URINE DIPSTICK NEGATIVE (NEGATIVE)
[2020-01-06 02:22] LABS: BILIRUBIN,URINE NEGATIVE (NEGATIVE); KETONES,URINE TRACE (NEGATIVE); URINE UROBILINOGEN 0.2 mg/dL (0.2 - 1); WBC,URINE (MAN) 21-50 /HPF (0-5)
[2020-01-06 02:23] LABS: BACTERIA,URINE MODERATE /HPF; EPITHELIAL CELLS,URINE MANY /LPF
== END 2020-01-06 02:46 | disposition home or self-care (01) ==
LOC: ER 00:57
DX: M54.5 Low back pain (principal); R11.2 Nausea with vomiting, unspecified; N20.1 Calculus of ureter; N30.90 Cystitis, unspecified without hematuria
CPT/HCPCS: 36415; 74176; 80053; 81001; 85025; 96374; 99283; J1885; J2405; J7030

== ENCOUNTER → 2020-08-09 | Outpatient (CLI) | payer MEDICARE, OTHER ==
--- NOTE | 2020-08-09 10:41 | Diagnostic Imaging Report ---
Small bowel follow-through Comparison: None Clinical History: Crohn's disease Total number of images submitted: Multiple Powder Core Tester radiographs were obtained. After oral ingestion of barium, overhead photospot x-ray images acquired periodically until the contrast medium across the ileocecal valve. Spot compression views of the areas of interest were obtained additionally if needed. Report: Powder Core Tester: Nonobstructive bowel gas pattern. No pneumatosis. No stones. Post cholecystectomy. Lung bases unremarkable. No aggressive skeletal lesions. There is quick passage of the orally administered barium into proximal jejunum. No gross filling defects or mucosal fold abnormality seen in the stomach and duodenum. The orally administered contrast medium crosses the ileocecal valve at 40 minutes film. There is no small bowel obstruction. The mucosal fold pattern of small bowel is unremarkable in the entire jejunum and ileum. There is no large gross abnormal intraluminal filling defect. There is no extrinsic mass effect on the small bowel. Impression: Unremarkable small bowel follow through study. No signs of active Crohn's disease on this exam. Signed by: Hugo Santana MD on 08/09/2020 10:37 AM
== END ==
LOC: DX 08:16
PROVIDERS: ATTEND Internal Medicine Gastroenterology
DX: Z01.812 Encounter for preprocedural laboratory examination (principal); Z20.828 Contact with and (suspected) exposure to other viral communicable diseases; K50.90 Crohn's disease, unspecified, without complications
CPT/HCPCS: 74250; U0002

== ENCOUNTER → 2022-01-26 | Day surgery (SDC) | payer MEDICARE, OTHER ==
[2022-01-22 09:03] LABS: BASOPHILS # (AUTO) 0.1 (0.0-0.1); BASOPHILS % 0.8 % (0.0-1.0); EOSINOPHILS # (AUTO) 0.8 (0.0-0.4); EOSINOPHILS % 10.5 % (0.0-6.0); HEMATOCRIT 41.7 % (34.2-44.1); HEMOGLOBIN 13.6 g/dL (12.0-16.0); LYMPHOCYTES # (AUTO) 2.9 (1.0-3.2); LYMPHOCYTES % 40.6 % (18.0-39.1); MEAN CORPUSCULAR HEMOGLOBIN 32.6 pg (28-32); MEAN CORPUSCULAR HGB CONC 32.6 g/dL (31-35); MONOCYTES # (AUTO) 0.7 (0.2-0.8); MONOCYTES % 9.9 % (4.4-11.3); NEUTROPHILS # (AUTO) 2.7 (2.1-6.9); NEUTROPHILS % 38.2 % (38.7-80.0); PLATELET COUNT 316 x10e3/uL (140-360); RED BLOOD COUNT 4.17 x10e6/uL (3.6-5.1); RED CELL DISTRIBUTION WIDTH 13.1 % (11.7-14.4)
[~2022-01-26] MED LIST changes: +HYOSCYAMINE SULFATE 0.5 MG/ML INJ ONE; +MIDAZOLAM HCL 2 MG/2 ML VIAL ONE; +MULTI-VITAMIN1 EACH PO; +PEPCID20 MG PO; +PROPOFOL IV EMULSION 10 MG/ML 20 ML VIAL ONE
[2022-01-26 16:52] LABS: WBC,FECAL (FECAL LACTOFERRIN) NEGATIVE (NEGATIVE)
[2022-01-26 17:35] VITALS: BP 120/74
[2022-01-27 15:57] LABS: C DIFFICILE TOXIN A&B AMP PROB NEGATIVE (NEGATIVE)
== END | disposition home or self-care (01) ==
LOC: OR 10:52
PROVIDERS: ATTEND Internal Medicine Gastroenterology
DX: K52.9 Noninfective gastroenteritis and colitis, unspecified (principal); K63.5 Polyp of colon; K29.60 Other gastritis without bleeding; K26.9 Duodenal ulcer, unspecified as acute or chronic, without hemorrhage or perforation; K44.9 Diaphragmatic hernia without obstruction or gangrene; K20.90 Esophagitis, unspecified without bleeding; K57.30 Diverticulosis of large intestine without perforation or abscess without bleeding; K62.89 Other specified diseases of anus and rectum; K64.8 Other hemorrhoids; K12.1 Other forms of stomatitis; Z71.3 Dietary counseling and surveillance; R03.0 Elevated blood-pressure reading, without diagnosis of hypertension; N20.0 Calculus of kidney; Z88.6 Allergy status to analgesic agent; Z01.810 Encounter for preprocedural cardiovascular examination; Z01.812 Encounter for preprocedural laboratory examination; Z20.822 Contact with and (suspected) exposure to COVID-19
CPT/HCPCS: 36415 ×2; 43239; 45380; 83630; 83993; 85025; 86141; 87045; 87177; 87328; 87493; 88305; 88312; 88342; 93005; C9113; J1980; J2250; J2704; U0002; 45378

== ENCOUNTER → 2025-01-24 | Day surgery (SDC) | payer MEDICARE, OTHER ==
[2025-01-23 10:51] LABS: BASOPHILS # (AUTO) 0.1 (0.0-0.1); BASOPHILS % 1.2 % (0.0-1.0); EOSINOPHILS # (AUTO) 0.5 (0.0-0.4); EOSINOPHILS % 7.8 % (0.0-6.0); HEMATOCRIT 38.8 % (34.2-44.1); HEMOGLOBIN 12.7 g/dL (12.0-16.0); LYMPHOCYTES # (AUTO) 2.4 (1.0-3.2); LYMPHOCYTES % 37.2 % (18.0-39.1); MEAN CORPUSCULAR HEMOGLOBIN 32.8 pg (28-32); MEAN CORPUSCULAR HGB CONC 32.7 g/dL (31-35); MEAN CORPUSCULAR VOLUME 100.3 fL (81-99); MONOCYTES # (AUTO) 0.6 (0.2-0.8); NEUTROPHILS # (AUTO) 2.8 (2.1-6.9); NEUTROPHILS % 43.6 % (38.7-80.0); PLATELET COUNT 291 x10e3/uL (140-360); RED BLOOD COUNT 3.87 x10e6/uL (3.6-5.1); RED CELL DISTRIBUTION WIDTH 12.8 % (11.7-14.4); WHITE BLOOD COUNT 6.43 x10e3/uL (4.8-10.8)
[~2025-01-24] MED LIST changes: +GLUCAGON FOR INJ 1 MG VIAL ONE; +LIDOCAINE; +LIDOCAINE HCL 2% LOCAL INJ 5 ML SDV VIAL INJ ONE; +METOCLOPRAMIDE HCL 10 MG/2ML VIAL ONE; -MIDAZOLAM HCL 2 MG/2 ML VIAL ONE; +ONDANSETRON HCL INJ 2MG/ML 2ML 2 MG/ML VIAL ONE; +PHENYLEPHRINE HCL 1% 10 MG/ML VIAL ONE; +PROPOFOL IV EMULSION 50 ML IV ONE; +SODIUM CHLORIDE 0.9% 100 ML ONE
[2025-01-24] MEDS: LACTATED RINGER'S 1,000 ML ONE (06:16)
[2025-01-24 08:30] VITALS: TEMP 97
[2025-01-24 08:45] VITALS: BP 108/58; PULSE 94; RESP 16; O2SAT 97
[2025-01-24] MEDS: ONDANSETRON HCL INJ 2MG/ML 2ML 2 MG/ML VIAL ONE (09:08)
[2025-01-25 07:20] LABS: C-REACTIVE PROTEIN <1 mg/L (0-10)
[2025-02-01 08:12] LABS: ENDOMYSIAL ANTIBODIES, IGA Negative (Negative)
[2025-02-01 09:20] LABS: IMMUNOGLOBULIN A 219 mg/dL (87-352); TISSUE TRANSGLUTAMINASE IGA AB <2 U/mL (0-3)
== END | disposition home or self-care (01) ==
LOC: OR 05:56
PROVIDERS: ATTEND Internal Medicine Gastroenterology
DX: K22.70 Barrett's esophagus without dysplasia (principal); Z86.0100 Personal history of colon polyps, unspecified; K31.7 Polyp of stomach and duodenum; K29.50 Unspecified chronic gastritis without bleeding; K50.90 Crohn's disease, unspecified, without complications; K63.89 Other specified diseases of intestine; K31.89 Other diseases of stomach and duodenum; K44.9 Diaphragmatic hernia without obstruction or gangrene; K57.30 Diverticulosis of large intestine without perforation or abscess without bleeding; N20.0 Calculus of kidney; Z88.6 Allergy status to analgesic agent; Z01.810 Encounter for preprocedural cardiovascular examination; Z01.812 Encounter for preprocedural laboratory examination
CPT/HCPCS: 36415; 43239; 45380; 82784; 83516; 85025; 86140; 86256; 88305; 93005; J1610; J1980; J2003; J2371; J2405; J2470; J2704 ×2; J2765; J7050; J7121; 45378